=== PATIENT | female | born 1940 | race Hispanic/Latino ===

== ENCOUNTER 2020-02-27 11:24 | Outpatient (CLI) | payer MEDICARE ==
--- NOTE | 2020-02-27 12:47 | CT ---
CT ABDOMEN AND PELVIS WITH AND WITHOUT IV CONTRAST 02/27/2020 CLINICAL INFORMATION: Gross hematuria COMPARISON: 06/16/2016 Technique: Multiple contiguous axial CT images are obtained through the abdomen and pelvis with IV contrast. Cor onal reformatted images are provided. FINDINGS: Lower Chest: Lung bases are clear. Vessels: Minimal vascular calcifications in the proximal abdominal aorta. Abdomen: Portal vein:Patent Gallbladder: Within normal limits for CT imaging. Liver: within normal limits. Spleen: within normal limits. Pancreas: within normal limits. Adrenals: within normal limits. Kidneys and ureters: Subcentimeter too small to characterize hypodense lesions are again seen in each kidney which are stable compared to the prior study and most suggestive of bilateral renal cysts given stability over this period of time. No enhancing renal mass is identified. No renal or ureteral calculi are seen bilaterally. No hydronephrosis is present. Nonspecific tortuosity of the proximal right ureter is seen. Bowel: Small to moderate amount retained fecal material seen throughout the colon. Loops of small bow el are normal in caliber. Appendix: The appendix is visualized and normal in caliber. Peritoneum: No ascites or free air; no fluid collection. Mesentery and Retroperitoneum: No enlarged mesenteric or retroperitoneal lymph nodes. Abdominal Wall: within normal limits. Pelvis: Reproductive Organs: No pelvic masses. Bladder: within normal limits. Bones: No suspicious lytic or sclerotic osseous lesions. IMPRESSION: 1. No acute findings in the abdomen or pelvis. 2. No renal or ureteral calculi are seen bilaterally, and no enhancing renal mass is identified. 3. Constipation.
== END 2020-02-27 11:25 | disposition home or self-care (01) ==
LOC: SCSCT 11:24
PROVIDERS: ATTEND Urology
DX: R31.0 Gross hematuria (principal); K59.00 Constipation, unspecified
CPT/HCPCS: 74178; 82565